=== PATIENT | female | born 1980 | race African-American/Black ===

== ENCOUNTER 2017-07-31 23:35 | Inpatient (IN) | payer BC ==
[~2017-07-31] VITALS: Ht 165.1 cm; Wt 66.4 kg
[2017-07-31 23:43] VITALS: BP 127/92; PULSE 88; RESP 18; TEMP 98; O2SAT 99
[2017-08-01] MEDS ORDERED: ACETAMINOPHEN/HYDROcodone 325 MG/7.5 MG TAB PO ONE
--- NOTE | 2017-08-01 00:01 | PD ---
HPI Chief Complaint: Injury Time Seen by Provider: 23:44 Travel History International Travel<30 days: No Contact w/Intl Traveler<30days: No Traveled to known affect area: No History of Present Illness HPI Patient is a 36-year-old female presenting to the emergency department for evaluation of left foot and ankle pain. Patient was at a football game, got excited that her team won subsequently jumping up and down rolling her ankle. She reports the pain is 10 out of 10, aching and throbbing in nature. No alleviating factors. Patient's ankle was wrapped by the sports statistician prior to arrival. She denies any numbness or weakness. She states is painful to move it and cannot bear weight. Symptom onset is sudden, symptoms are moderate in nature. No alleviating factors. Pain is constant. PFSH Past Medical History Anemia: Yes Asthma: Yes Diminished Hearing: No Immunizations Current: Yes Migraines: Yes ?: Not Past Surgical History Appendectomy: Yes Gynecologic Surgery: Yes (UTERINE) Social History Alcohol Use: Yes Tobacco Use: No Substance Use: No Allergies-Medications (Allergen,Severity, Reaction): Coded Allergies: aspirin (Verified Allergy, Severe, 07/31/17) Review of Systems Except as stated in HPI: all other systems reviewed are Neg Musculoskeletal: Positive: Myalgias, Arthralgias, Limited ROM, Pain, No: Edema Skin: No Change in Pigmentation Physical Exam Narrative GENERAL: Well-developed, well-nourished, alert -[place] female. Presenting in no acute distress, appears uncomfortable. SKIN: Warm and dry. HEAD: Atraumatic. Normocephalic. EYES: Pupils equal and round. No scleral icterus. No injection or drainage. ENT: No nasal bleeding or discharge. Mucous membranes pink and moist. NECK: Trachea midline. No JVD. CARDIOVASCULAR: Regular rate and rhythm. RESPIRATORY: No accessory muscle use. Clear to auscultation. Breath sounds equal bilaterally. GASTROINTESTINAL: Abdomen soft, non-tender, nondistended. Hepatic and splenic margins not palpable. MUSCULOSKELETAL: Extremities without clubbing, cyanosis, or edema. No obvious deformities. Limited range of motion with flexion and extension of left ankle. 2+ dorsalis pedal pulse, brisk less than 3 second capillary refill. Tenderness to palpation to lateral aspect of left ankle and the plantar aspect of the left foot. NEUROLOGICAL: Awake and alert. No obvious cranial nerve deficits. Motor grossly within normal limits. Five out of 5 muscle strength in the arms and legs. Normal speech. PSYCHIATRIC: Appropriate mood and affect; insight and judgment normal. Data Data Last Documented VS Vital Signs Date Time Temp Pulse Resp B/P (MAP) Pulse Ox O2 Delivery O2 Flow Rate FiO2 08/01/17 04:15 83 20 135/91 (106) 98 Room Air 07/31/17 23:43 98.0 Orders Orders Foot, Complete ([id number]) (07/31/17 ) Ankle, Complete ([id number]) (07/31/17 ) Ice/Cold Pack (07/31/17 23:52) Acetamin-Hydrocod 325-7.5 Mg ([place] 7.5 (08/01/17 00:00) Complete Blood Count With Diff (08/01/17 03:25) Comprehensive Metabolic Panel (08/01/17 03:25) Act Partial Throm Time (Ptt) (08/01/17 03:25) Prothrombin Time / Inr (Pt) (08/01/17 03:25) Iv Access Insert/Monitor (08/01/17 03:25) Ct Foot W/O Contrast (08/01/17 ) Acetaminophen 1000 Mg/100 Ml (Ofirmev 10 (08/01/17 03:45) Splinting (08/01/17 ) Admit To Inpatient (08/01/17 ) Vital Signs (Adult) Q4H (08/01/17 03:48) Activity Bed Rest (08/01/17 03:48) Diet Npo (08/01/17 Breakfast) Sodium Chlor 0.9% 1000 Ml Inj (Ns 1000 M (08/01/17 03:48) Sodium Chloride 0.9% Flush (Ns Flush) (08/01/17 04:00) Sodium Chloride 0.9% Flush (Ns Flush) (08/01/17 09:00) Metoclopramide Inj (Reglan Inj) (08/01/17 04:00) Comprehensive Metabolic Panel (08/02/17 06:00) Complete Blood Count With Diff (08/02/17 06:00) Pt Request For Service (08/01/17 03:48) Case Management Consult (08/01/17 03:48) Acetaminophen (Tylenol) (08/01/17 04:00) Acetamin-Hydrocod 325-5 Mg ([place] 5-325 (08/01/17 04:00) Docusate Sodium-Senna (Ofelia-Colace) (08/01/17 09:00) Magnesium Hydroxide Liq (Milk Of Magnesi (08/01/17 04:00) Sennosides (Senokot) (08/01/17 04:00) Bisacodyl Supp (Dulcolax Supp) (08/01/17 04:00) Lactulose Liq (Lactulose Liq) (08/01/17 04:00) Inpatient Certification (08/01/17 ) Consult Podiatry (08/01/17 ) Morphine Inj (Morphine Inj) (08/01/17 04:15) Admit Order (Ed Use Only) (08/01/17 04:28) Labs Laboratory Tests Test 08/01/17 03:40 Prothrombin Time 10.1 SEC Prothromb Time International Ratio 1.0 RATIO Activated Partial Thromboplast Time 23.3 SEC Blood Urea Nitrogen 13 MG/DL Creatinine 0.88 MG/DL Random Glucose 88 MG/DL Total Protein 7.9 GM/DL Albumin 3.2 GM/DL Calcium Level 8.1 MG/DL Alkaline Phosphatase 58 U/L Aspartate Amino Transf (AST/SGOT) 16 U/L Alanine Aminotransferase (ALT/SGPT) 17 U/L Total Bilirubin 0.1 MG/DL Sodium Level 144 MEQ/L Potassium Level 3.6 MEQ/L Chloride Level 109 MEQ/L Carbon Dioxide Level 24.7 MEQ/L Anion Gap 10 MEQ/L Estimat Glomerular Filtration Rate 87 ML/MIN [facility] Medical Decision Making Medical Screen Exam Complete: Yes Emergency Medical Condition: Yes Interpretation(s) Vital Signs Date Time Temp Pulse Resp B/P (MAP) Pulse Ox O2 Delivery O2 Flow Rate FiO2 07/31/17 23:43 98.0 88 18 127/92 (104) 99 Room Air Differential Diagnosis Fracture versus sprain versus strain versus other Narrative Course Patient is a 28-year-old female presenting to emerge department for evaluation of left ankle and foot pain after jumping up and down, rolling her ankle. Patient is neurovascularly intact. Imaging ordered and pending. Patient be given pain medication ice for pain relief. Will reassess. Initial x-ray shows slightly comminuted mildly displaced fracture of the calcaneus. CT scan of the foot is ordered and pending. Patient reported that initial dose of pain medication helped alleviate her pain. CT scan of the left foot shows a comminuted, mildly displaced fracture extending through the anterior, mid, posterior portion of the calcaneus and extending into the subtalar joint. Discussed findings with my attending physician, patient will be admitted to medicine with a consult to podiatry. Patient and spouse were advised on findings. Patient will be placed in a well-padded [place] splint. Discussed with Dr. Wilhelm who accepted admit. CMP with no acute findings, CBC is pending, discussed with lab, CBC machine is down due to problem with down time procedures. Diagnosis Primary Impression: Calcaneus fracture, left Qualified Codes: S92.012A - Displaced fracture of body of left calcaneus, initial encounter for closed fracture Admitting Information Admitting Physician Requests: Admit Condition: Stable Maria D Strickland August 01, 2017 00:01
--- NOTE | 2017-08-01 00:39 | RADRPT ---
EXAM DATE/TIME: 08/01/2017 00:02 [facility] COMPARISON: No previous studies available for comparison. INDICATIONS : Pain post fall. MEDICAL HISTORY : Asthma. Anemia. SURGICAL HISTORY : Uterine. Appendectomy. Right foot surgery. ENCOUNTER: Initial ACUITY: 1 day PAIN SCORE: 10/10 LOCATION: Left Ankle. FINDINGS: There is a mildly displaced calcaneal fracture extending into the subtalar joint. Fracture is slightl y comminuted. There is soft tissue swelling around hindfoot and ankle. Ankle mortise intact. CONCLUSION: 1. Slightly comminuted mildly displaced fracture of the calcaneus. Rickie Frances MD on August 01, 2017 at 0:36 Board Certified Radiologist. This report was verified electronically.
--- NOTE | 2017-08-01 02:32 | RADRPT ---
EXAM DATE/TIME: 08/01/2017 00:02 [facility] COMPARISON: No previous studies available for comparison. INDICATIONS : Pain post fall. MEDICAL HISTORY : Asthma. Anemia. SURGICAL HISTORY : Uterine. Appendectomy. Right foot surgery. ENCOUNTER: Initial ACUITY: 1 day PAIN SCORE: 10/10 LOCATION: Left Foot. FINDINGS: There is a slightly comminuted mildly displaced fracture of the calcaneus. No dislocation. There is s urrounding soft tissue swelling. No other fractures of the left foot identified. CONCLUSION: 1. Slightly comminuted mildly displaced fracture of the calcaneus extending into subtalar joint with surrounding soft tissue swelling. Rickie Frances MD on August 01, 2017 at 1:23 Board Certified Radiologist. This report was verified electronically.
[2017-08-01] MEDS ORDERED: ACETAMINOPHEN 1000 MG/100 ML 100 ML IV ONE (03:45)
[2017-08-01 03:47] VITALS: BP 142/90; PULSE 62; RESP 20; O2SAT 98
[2017-08-01] MEDS: SODIUM CHLOR 0.9% 1000 ML INJ 1,000 ML IV SCH ×2 (03:48→13:48)
[2017-08-01] MEDS ORDERED: SENNOSIDES 8.6 MG TAB PO PRN (04:00)
[2017-08-01] MEDS ORDERED: MAGNESIUM HYDROXIDE SUSP 30 ML CUP PO PRN (04:00)
[2017-08-01] MEDS ORDERED: SODIUM CHLORIDE 0.9% FLUSH 10 ML FLUSH IV FLUSH PRN (04:00)
[2017-08-01] MEDS ORDERED: ACETAMINOPHEN 325 MG TAB PO PRN (04:00)
[2017-08-01] MEDS ORDERED: LACTULOSE SYRUP 20 GM/30 ML CUP PO PRN (04:00)
[2017-08-01] MEDS ORDERED: METOCLOPRAMIDE HCL 10 MG/2 ML VIAL IV PUSH PRN (04:00)
[2017-08-01] MEDS ORDERED: BISACODYL 10 MG SUPP RECTAL PRN (04:00)
[2017-08-01] MEDS: MORPHINE SULFATE 4 MG/ML INJ IV PUSH PRN ×3 (04:14→16:06)
[2017-08-01 04:15] VITALS: BP 135/91; PULSE 83; RESP 20; O2SAT 98
--- NOTE | 2017-08-01 04:27 | HHI.HP ---
[facility] Primary Care Physician Unknown Admission Diagnosis Diagnoses: (1) Calcaneus fracture, left Diagnosis: Principal Travel History International Travel<30 Days: No Contact w/Intl Traveler <30 Da: No Traveled to Known Affected Are: No History of Present Illness This is a 36-year-old female with a PMH of Asthma who presented to the ER secondary to complaints of left ankle pain after injury. Patient states she is from [place] and was here watching a football game, states her team one at the last second and she got very excited and jumped up and down, ended up falling into a trench and rolled her left ankle. Pain is constant, severe, 10/ 10, nonradiating, worse with movement. No other injuries reported. On arrival , BP 127/92, HR 88, O2 sat 99% RA, Afebrile. Labs pending. Ankle X-ray with comminuted mildly displaced fracture of the calcaneus. Review of Systems Except as stated in HPI: all other systems reviewed are Neg ROS: 14 point review of systems otherwise negative. Past Family Social History Past Medical History PMH: Asthma Past Surgical History PAST SURGICAL HISTORY: Appendectomy, Uterine Surgery Allergies: Coded Allergies: aspirin (Verified Allergy, Severe, 07/31/17) Family History PAST FAMILY HISTORY: Reviewed. No h/o DM or CAD Social History PAST SOCIAL HISTORY: Occasional alcohol. Negative for tobacco or drugs. Physical Exam Vital Signs Vital Signs Date Time Temp Pulse Resp B/P (MAP) Pulse Ox O2 Delivery O2 Flow Rate FiO2 08/01/17 04:15 83 20 135/91 (106) 98 Room Air 08/01/17 03:47 62 20 142/90 (107) 98 Room Air 08/01/17 03:07 20 07/31/17 23:43 98.0 88 18 127/92 (104) 99 Room Air Physical Exam PE: GENERAL: Extremely pleasant young black female in no acute distress, however in obvious pain. HEENT: PERRLA, EOMI. No scleral icterus or conjunctival pallor. No lid lag or facial droop. CARDIOVASCULAR: Regular rate and rhythm. No obvious murmurs to auscultation. No chest tenderness to palpation. RESPIRATORY: No obvious rhonchi or wheezing. Clear to auscultation. Breath sounds equal bilaterally. GASTROINTESTINAL: Abdomen soft, non-tender, nondistended. BS normal. MUSCULOSKELETAL: Extremities without clubbing, cyanosis, or edema. No obvious deformities. Decreased ROM of LLE due to injury, pulses intact. NEUROLOGICAL: Awake, alert and oriented x4. No focal neurologic deficits. Moving both upper and lower extremities spontaneously. Laboratory Laboratory Tests Test 08/01/17 03:40 Caprini VTE Risk Assessment Caprini VTE Risk Assessment: No/Low Risk (score <= 1) Caprini Risk Assessment Model Point Value = 1 Point Value = 2 Point Value = 3 Point Value = 5 Age 41-60 Minor surgery BMI > 25 kg/m2 Swollen legs Varicose veins or History of unexplained or recurrent spontaneous Oral contraceptives or hormone replacement Sepsis (< 1 month) Serious lung disease, including pneumonia (< 1 month) Abnormal pulmonary function Acute myocardial infarction Congestive heart failure (< 1 month) History of inflammatory bowel disease Medical patient at bed rest Age 61-74 Arthroscopic surgery Major open surgery (> 45 min) Laparoscopic surgery (> 45 min) Malignancy Confined to bed (> 72 hours) Immobilizing plaster cast Central venous access Age >= 75 History of VTE Family history of VTE Factor V Leiden Prothrombin [id number] Lupus anticoagulant Anticardiolipin antibodies Elevated serum homocysteine Heparin-induced thrombocytopenia Other congenital or acquired thrombophilia Stroke (< 1 month) Elective arthroplasty Hip, pelvis, or leg fracture Acute spinal cord injury (< 1 month) Prophylaxis Regimen Total Risk Factor Score Risk Level Prophylaxis Regimen 0-1 Low Early ambulation 2 Moderate Order ONE of the following: *Sequential Compression Device (SCD) *Heparin 5000 units SQ BID 3-4 Higher Order ONE of the following medications: *Heparin 5000 units SQ TID *Enoxaparin/Lovenox 40 mg SQ daily (WT < 150 kg, CrCl > 30 mL/min) *Enoxaparin/Lovenox 30 mg SQ daily (WT < 150 kg, CrCl > 10-29 mL/min) *Enoxaparin/Lovenox 30 mg SQ BID (WT < 150 kg, CrCl > 30 mL/min) AND/OR *Sequential Compression Device (SCD) 5 or more Highest Order ONE of the following medications: *Heparin 5000 units SQ TID (Preferred with Epidurals) *Enoxaparin/Lovenox 40 mg SQ daily (WT < 150 kg, CrCl > 30 mL/min) *Enoxaparin/Lovenox 30 mg SQ daily (WT < 150 kg, CrCl > 10-29 mL/min) *Enoxaparin/Lovenox 30 mg SQ BID (WT < 150 kg, CrCl > 30 mL/min) AND *Sequential Compression Device (SCD) Assessment and Plan Problem List: (1) Calcaneus fracture, left ICD Code: S92.002A - Unspecified fracture of left calcaneus, initial encounter for closed fracture Assessment and Plan A/P: 1. Left Calcaneus Fx: s/p injury after jumping up and down and rolling her ankle, X-ray w/ comminuted mildly displaced fracture of calcaneus, images reviewed by me. Labs pending. To be splinted in ER. Consult Podiatry for surgical intervention in am. NPO, IVF, analgesics/antiemetics as needed. 2. DVT Prophylaxis: Anticoagulation post op 3. Social work for d/c planning as needed. 4. Case discussed w/ ER physician at length, labs/records/imaging reviewed by me. Physician Certification 2 Midnight Certification Type: Admission for Inpatient Services Order for Inpatient Services The services are ordered in accordance with Medicare regulations or non- Medicare payer requirements, as applicable. In the case of services not specified as inpatient-only, they are appropriately provided as inpatient services in accordance with the 2-midnight benchmark. Estimated LOS (days): 2 days is the estimated time the patient will need to remain in the hospital, assuming treatment plan goals are met and no additional complications. Post-Hospital Plan: Not yet determined Nelli Wilhelm MD August 01, 2017 04:27
[2017-08-01 04:33] LABS: ALBUMIN 3.2 GM/DL (3.4-5.0); ALT (GPT) 17 U/L (10-53); AST (GOT) 16 U/L (15-37); BICARBONATE 24.7 MEQ/L (21.0-32.0); BLOOD UREA NITROGEN 13 MG/DL (7-18); CALCIUM 8.1 MG/DL (8.5-10.1); CHLORIDE 109 MEQ/L (98-107); CREATININE 0.88 MG/DL (0.50-1.00); GLOMERULAR FILTRATION RATE 87 ML/MIN (>89); GLUCOSE,RANDOM 88 MG/DL (74-106); SODIUM (NA) 144 MEQ/L (136-145)
[2017-08-01 04:35] LABS: ALKALINE PHOSPHATASE 58 U/L (45-117); TOTAL BILIRUBIN ADULT 0.1 MG/DL (0.2-1.0); TOTAL PROTEIN 7.9 GM/DL (6.4-8.2)
[2017-08-01 04:39] LABS: PROTHROMBIN TIME - PATIENT 10.1 SEC (9.8-11.6)
[2017-08-01] MEDS: ACETAMINOPHEN/HYDROcodone 325 MG/5 MG TAB PO PRN ×2 (05:07→19:00)
[2017-08-01 05:42] VITALS: BP 131/87; PULSE 79; RESP 18; TEMP 97.9; O2SAT 97
[2017-08-01] MEDS ORDERED: ACETAMINOPHEN/HYDROcodone 325 MG/10 MG TAB PO ONE (05:45)
[2017-08-01] MEDS ORDERED: ZANTTAB PO (05:56)
[2017-08-01] MEDS ORDERED: SUMA50TA2 PO (05:56)
[2017-08-01] MEDS ORDERED: ZOFR4TAB PO (05:56)
[2017-08-01] MEDS ORDERED: ADVI200C3 PO (05:56)
[2017-08-01] MEDS ORDERED: CHLORHEXIDINE GLUCONATE 2 % 1 PACK (2 CLOTHS) TOPICAL PRN (06:15)
[2017-08-01] MEDS ORDERED: LACTATED RINGER'S 1000 ML IV PRN (06:15)
[2017-08-01] MEDS ORDERED: SODIUM CHLORID 0.9% 500 ML IV PRN (06:15)
[2017-08-01] MEDS ORDERED: POVIDONE IODINE 5% (ANTISEPSIS KIT) 4 APPLICATIONS EACH NARE PRN (06:15)
[2017-08-01 06:37] LABS: AUTOMATED NEUTROPHIL # 2.9 TH/MM3 (1.8-7.7); BASOPHIL % 0.6 % (0.0-2.0); EOSINOPHIL % 0.3 % (0.0-4.0); HEMATOCRIT 33.4 % (35.0-46.0); HEMOGLOBIN 11.1 GM/DL (11.6-15.3); LYMPH % 41.1 % (9.0-44.0); LYMPHOCYTE # 2.5 TH/MM3 (1.0-4.8); MEAN CELL VOLUME 87.9 FL (80.0-100.0); MEAN CORPUSCULAR HEMOGLOBIN 29.1 PG (27.0-34.0); MEAN CORPUSCULAR HGB CONC 33.1 % (32.0-36.0); MEAN PLATELET VOLUME 8.6 FL (7.0-11.0); MONO % 9.6 % (0.0-8.0); MONOCYTE # 0.6 TH/MM3 (0-0.9); NEUT % 48.4 % (16.0-70.0); PLATELET COUNT 262 TH/MM3 (150-450); RED CELL DISTRIBUTION WIDTH 14.3 % (11.6-17.2)
[2017-08-01 08:00] VITALS: BP 121/70; PULSE 81; RESP 16; TEMP 98.1; O2SAT 98
[2017-08-01] MEDS ORDERED: BUPIVACAINE LIPOSOME PF 1.3% 20 ML VIAL ONE (08:48)
[2017-08-01] MEDS ORDERED: HYDR-3288 PO (08:58)
[2017-08-01] MEDS ORDERED: CEPH-460 PO (08:59)
[2017-08-01] MEDS ORDERED: SODIUM CHLORIDE 0.9% FLUSH 10 ML FLUSH IV FLUSH SCH (09:00)
[2017-08-01] MEDS ORDERED: ENOX40P SQ (09:00)
[2017-08-01] MEDS ORDERED: DOCUSATE SODIUM 50 MG/SENNA 8.6 MG TAB PO SCH (09:00)
--- NOTE | 2017-08-01 09:02 | HHI.DCPOC ---
Discharge Care Plan Diagnosis: (1) Calcaneus fracture, left Goals to Promote Your Health * To prevent worsening of your condition and complications * To maintain your health at the optimal level Directions to Meet Your Goals Take your medications as prescribed Follow your dietary instruction Follow activity as directed Keep your appointments as scheduled Take your immunizations and boosters as scheduled If your symptoms worsen call your PCP, if no PCP go to Urgent Care Center or Emergency Room Smoking is Dangerous to Your Health. Avoid second hand smoke Call the 24-hour hour crisis hotline for domestic abuse at Elly Enriquez August 01, 2017 09:02
--- NOTE | 2017-08-01 09:03 | HHI.FF ---
Face to Face Verification Diagnosis: (1) Calcaneus fracture, left Physical Therapy Order: Evaluate and Treat Home Health Nursing Order: Medical education Signs/symptoms of disease process Medication education-adverse effect Nursing assessment with vital signs Instructions: Please assist patient with Lovenox injections. She will need Lovenox for 21 days I have seen patient Andria Velazco on 08/01/17. My clinical findings support the need for the requested home health care services because: Ltd mobility - disease progression Limited ability to care for self I certify that my clinical findings support that this patient is homebound because: Post-op weakness Unsteady gait/balance Elly Enriquez August 01, 2017 09:03
--- NOTE | 2017-08-01 09:15 | HHI.PR ---
Subjective Remarks Patient reports pain is much better with the pain medication Asking how soon she can go home after surgery Objective Vitals Vital Signs Date Time Temp Pulse Resp B/P (MAP) Pulse Ox O2 Delivery O2 Flow Rate FiO2 08/01/17 06:07 18 08/01/17 05:45 08/01/17 05:42 97.9 79 18 131/87 (102) 97 08/01/17 04:15 83 20 135/91 (106) 98 Room Air 08/01/17 03:47 62 20 142/90 (107) 98 Room Air 08/01/17 03:07 20 07/31/17 23:43 98.0 88 18 127/92 (104) 99 Room Air I/O 07/31/17 07/31/17 07/31/17 08/01/17 08/01/17 08/01/17 07:00 15:00 23:00 07:00 15:00 23:00 Intake Total 0 ml Balance 0 ml Intake Oral 0 ml # Voids 1 # Bowel Movements 0 Result Diagram: 08/01/17 0340 08/01/17 0340 Other Results Laboratory Tests Test 08/01/17 03:40 White Blood Count 6.0 TH/MM3 Red Blood Count 3.80 MIL/MM3 Hemoglobin 11.1 GM/DL Hematocrit 33.4 % Mean Corpuscular Volume 87.9 FL Mean Corpuscular Hemoglobin 29.1 PG Mean Corpuscular Hemoglobin Concent 33.1 % Red Cell Distribution Width 14.3 % Platelet Count 262 TH/MM3 Mean Platelet Volume 8.6 FL Neutrophils (%) (Auto) 48.4 % Lymphocytes (%) (Auto) 41.1 % Monocytes (%) (Auto) 9.6 % Eosinophils (%) (Auto) 0.3 % Basophils (%) (Auto) 0.6 % Neutrophils # (Auto) 2.9 TH/MM3 Lymphocytes # (Auto) 2.5 TH/MM3 Monocytes # (Auto) 0.6 TH/MM3 Eosinophils # (Auto) 0.0 TH/MM3 Basophils # (Auto) 0.0 TH/MM3 CBC Comment DIFF FINAL Differential Comment Prothrombin Time 10.1 SEC Prothromb Time International Ratio 1.0 RATIO Activated Partial Thromboplast Time 23.3 SEC Blood Urea Nitrogen 13 MG/DL Creatinine 0.88 MG/DL Random Glucose 88 MG/DL Total Protein 7.9 GM/DL Albumin 3.2 GM/DL Calcium Level 8.1 MG/DL Alkaline Phosphatase 58 U/L Aspartate Amino Transf (AST/SGOT) 16 U/L Alanine Aminotransferase (ALT/SGPT) 17 U/L Total Bilirubin 0.1 MG/DL Sodium Level 144 MEQ/L Potassium Level 3.6 MEQ/L Chloride Level 109 MEQ/L Carbon Dioxide Level 24.7 MEQ/L Anion Gap 10 MEQ/L Estimat Glomerular Filtration Rate 87 ML/MIN Imaging Last Impressions Foot X-Ray 07/31/17 0000 Signed Impressions: Service Date/Time: Tuesday, August 01, 2017 00:02 - CONCLUSION: 1. Slightly comminuted mildly displaced fracture of the calcaneus extending into subtalar joint with surrounding soft tissue swelling. Rickie Frances MD Ankle X-Ray 07/31/17 0000 Signed Impressions: Service Date/Time: Tuesday, August 01, 2017 00:02 - CONCLUSION: 1. Slightly comminuted mildly displaced fracture of the calcaneus. Rickie Frances MD Objective Remarks GENERAL: This is a well-nourished, well-developed patient, in no apparent distress. CARDIOVASCULAR: Regular rate and rhythm RESPIRATORY: Clear to auscultation. Breath sounds equal bilaterally. GASTROINTESTINAL: Abdomen soft, non-tender, nondistended. Normal active bowel sounds MUSCULOSKELETAL: splint LLE NEURO: Alert & Oriented x4 to person, place, time, situation. Moves all ext x4 A/P Problem List: (1) Calcaneus fracture, left ICD Code: S92.002A - Unspecified fracture of left calcaneus, initial encounter for closed fracture Assessment and Plan 1. Left Calcaneus Fx: s/p injury after jumping up and down and rolling her ankle, X-ray w/ comminuted mildly displaced fracture of calcaneus. Consult Podiatry. Discussed the case with Dr. Marks. Plan for surgery this AM if pain well controlled plan to DC patient later today. Continue analgesics/ antiemetics as needed. 2. DVT Prophylaxis: Lovenox SQ x 21 days per podiatry recommendations 3. Discussed with manager rn case plan to DC later today with [facility] to assist with Lovenox injections Supervising physician Dr. Melchor Problem Qualifiers (1) Calcaneus fracture, left: Qualified Codes: S92.012A - Displaced fracture of body of left calcaneus, initial encounter for closed fracture Elly Enriquez August 01, 2017 09:15
[2017-08-01] MEDS ORDERED: ceFAZolin 2 GM PREMIX 50 ML ONE (09:27)
--- NOTE | 2017-08-01 09:43 | MB ---
cc: Ezequiel Marks DPM DATE: 08/01/2017 REASON FOR CONSULTATION: Left calcaneal fracture. HISTORY OF PRESENT ILLNESS: This is a pleasant 36-year-old female who sustained an injury last night upon jumping. She fell into a trench and then rolled her ankle. She is having severe pain upon arrival to the ED. The ankle and foot x-rays revealed a calcaneal fracture that appeared to be intra-articular. A CT examination revealed a displaced posterior facet calcaneal fracture. Currently I am seeing the patient bedside. Pain has somewhat improved. PAST MEDICAL HISTORY: Asthma. PAST SURGICAL HISTORY: Appendectomy, uterine surgery, right foot neuroma surgery. ALLERGIES: ASPIRIN. FAMILY HISTORY: No history of diabetes or CAD. SOCIAL HISTORY: Occasional alcohol, negative for tobacco. The patient works for [employer]. OUTPATIENT MEDICATIONS: None listed. INPATIENT MEDICATIONS: P.r.n. medication. PHYSICAL EXAMINATION: VITAL SIGNS: 66 kilogram female. Temperature 97.9, pulse rate 79, respiratory rate 18, blood pressure 131/87. GENERAL: This is an alert and oriented female seen at bedside exhibiting nonlabored respirations. She is verbal, appropriate. She is moving all the upper and lower extremities. Left lower extremity is immobilized within a well-padded below-knee splint. There is good capillary refill time to digits. The ankle appears to be nontender. There is pain upon [id number] compression of the calcaneus. There is no strikethrough of the bandage. LABORATORY FINDINGS: White blood cell 6, hemoglobin and hematocrit, 11 and 33, platelet count is 262. Chem-7: Sodium 144, potassium 3.6, chloride 109, CO2 24.7, BUN 13, creatinine 0.88, random glucose 88, AST 16, ALT 17. Albumin 3.2. Coagulation profile: PT 10.1, INR 1.0. IMAGING FINDINGS: Ankle x-ray: Well preserved ankle mortise without any signs of syndesmotic widening, osteochondral lesion. Lateral view of the foot and ankle reveals intra-articular fracture. CT examination: There is noted to be a displaced anterolateral aspect of the subtalar joint, greater than 5 mm. There is mild comminution noted. There is not a significant joint depression; however, there appears to be a lateral wall blowout of the calcaneus and there is slight varus rotation alignment of the most distal aspect of the calcaneus about the sustentacular fragment. ASSESSMENT AND PLAN: Left intra-articular displaced calcaneal fracture. The patient was educated on the severity of the injury. The goal is to reduce the fracture fragments to decrease the chance of posttraumatic arthritis. The patient understood screws and possible plate will be placed within the foot, possibly need to be removed at a later date. Risks and benefits reviewed including, but not limited to delayed healing, nonhealing, infection, possible need for subtalar joint fusion at a later date. The patient also reviewed the need to be immobilized, likely DVT prophylaxis is indicated for a minimum 21 days. I reviewed the case with the admitting team. We will attempt a popliteal block to assist with pain management anticipating a possible discharge after surgery if pain is well controlled and she can followup outpatient as she has a podiatric surgeon in [place]. Questions were answered. The patient is n.p.o. Surgery will take place in the next 1-2 hours. MARY Monsivais/HANY , 08:55 AM , 09:42 AM JORY
[2017-08-01] MEDS ORDERED: CEFAZOLIN INJ 2,000 MG in SODIUM CHLORIDE 0.9% INJ 100 ML IV ONE (11:00)
[2017-08-01] MEDS ORDERED: MIDAZOLAM HCL 2 MG/2 ML VIAL ONE (11:49)
--- NOTE | 2017-08-01 11:50 | HHI.PR ---
Immediate Post Op Note Procedure Date: August 01, 2017 Pre Op Diagnosis: left calcaneal fracture Post Op Diagnosis: same Surgeon: Ezequiel Cueva Weight Reducing Technician(s): scrub Procedure: ORIF left calcaneus Findings: see anethesia Additional Information: Ok to DC home once stable on floor and pain controlled, patient popliteal block with Exparel Complications: none Specimen(s) removed: none Estimated blood loss: less 30 mL Anesthesia: General, Regional Block Drains: None IVF Tourniquet time (min at mmHg) 65 min 250mmhg Patient to: PACU Patient Condition: Good Implant/Devices: SEE IMPLANT LOG (if applicable) Date/Time of Procedure: SEE SURGICAL CARE RECORD Ezequiel Cueva DPM August 01, 2017 11:50
--- NOTE | 2017-08-01 12:11 | RADRPT ---
EXAM DATE/TIME: 08/01/2017 11:08 [facility] COMPARISON: No previous studies available for comparison. INDICATIONS : Surgical repair MEDICAL HISTORY : None. SURGICAL HISTORY : None. ENCOUNTER: Initial ACUITY: 1 day PAIN SCORE: Non-responsive. LOCATION: Left calcaneous. FINDINGS: 2 images were recorded digitally in the operating room using C-arm during placement of internal fixat ion hardware in the calcaneus. CONCLUSION: Intraoperative images. Best Borrego MD on August 01, 2017 at 12:09 Board Certified Radiologist. This report was verified electronically.
[2017-08-01] MEDS ORDERED: DO NOT ADM ANY ANTICOAGULANT DRUGS PRN (12:15)
[2017-08-01 12:39] VITALS: BP 128/79; PULSE 90; RESP 16; TEMP 98.1; O2SAT 97
--- NOTE | 2017-08-01 12:54 | MP ---
cc: Ezequiel Marks DPM DATE OF OPERATION: PREOPERATIVE DIAGNOSIS: Left intraarticular displaced calcaneal fracture. POSTOPERATIVE DIAGNOSIS: Left intraarticular displaced calcaneal fracture. PROCEDURE PERFORMED: Open reduction, internal fixation of left calcaneus. ANESTHESIA: General. The patient received a popliteal and a lesser saphenous block utilizing Exparel. ESTIMATED BLOOD LOSS: Less than 30 mL TOURNIQUET: 65 minutes at a setting of 250 mmHg about the patient's left mid thigh. MATERIALS USED: Synthes x 2 4.0 cannulated stainless steel screws, x 1 fully threaded 4.5 cannulated stainless steel screw and x 1 6.5 stainless steel partially threaded screw. SPECIMEN: None. COMPLICATION: None. PLAN OF ACTIVITY: Return to floor. If pain well controlled, okay to discharge later on today on Keflex, to receive at least 5 doses, as well as Lovenox to start approximately 12 hours after surgery. The patient will be nonweightbearing. JUSTIFICATION FOR PROCEDURE: This is a pleasant 36-year-old female who sustained a trip fall. She presented to the ED. Intraarticular calcaneal fracture was noted. CT showed there was greater than 5 mm of gapping of the lateral aspect of the subtalar joint with lateral wall blowout. We devised a plan to move forward with surgical intervention. Risks and benefits explained in great detail and no guarantees given or implied regarding the outcome. PROCEDURE IN DETAIL: Under mild sedation, the patient was brought in the operating room, placed on the operating table in the supine position. The anesthesia department performed a popliteal block and saphenous block. The patient's left foot was then scrubbed, prepped and draped in the usual aseptic fashion. The left foot was elevated and exsanguinated and the previously placed mid thigh tourniquet was inflated at 250 mmHg. An incision was made over the lateral aspect of the sinus tarsi. Curvilinear incision being careful not to violate the lateral dorsal cutaneous nerve as well as the sural nerve or peroneal tendons. Sharp and blunt dissection was carried down to the subtalar joint in which the fracture fragment was noted to be significantly displaced involving the lateral aspect of the subtalar joint. Next, a Schanz pin was then placed transaxial through the calcaneus from the lateral aspect of the distal calcaneus exiting medially. Distraction then took place to pull the foot out of a varus alignment into a more rectus alignment. Utilizing a [place] elevator, the fracture fragment of the posterior facet was then reduced anatomically and a wire was then placed from the lateral aspect of the wall of the calcaneus into the sustentaculum fragment. A second wire was then placed in parallel fashion. Lateral aspect was visualized and there was no step-off noted of the subtalar joint. It was noted to be near anatomical. Calcaneal axial and lateral fluoroscopic views confirmed the alignment of the guidewire and the subtalar joint. Utilizing proper AO technique, two 4-0 screws were then placed, securing the posterior facet. Next a [place]ong elevator was used to distract the lateral wall fragment, the body fragments under live fluoroscopy, calcaneal axial while putting traction through the transcalcaneal pin. Next, a guidewire for a 6.5 screw was then placed through the plantar aspect of the calcaneus, but stopped just short of the posterior facet to provide a kickstand type effect and line up the posterior tuber of the calcaneus plantarly with the mid body and sustentaculum fragment. Next, a wire was then placed through the posterior plantar aspect of the calcaneus that was slightly more lateral, securing the posterior facet and the lateral wall of the calcaneus. Utilizing proper AO technique, 2 screws were then placed, one a 6.5 and then the other being a 4.5 fully threaded screw. The calcaneus was then brought through range of motion. The transaxial pin was then removed. There was noted to be no shifting of fracture fragments. Minimal medial wall step-off was noted. However, significant improvement in varus alignment now more rectus. The wound was then flushed with copious amounts of normal saline. All percutaneous incisions were then closed utilizing nylon. Deep joint capsule of the sinus tarsi was closed utilizing Vicryl. Skin was closed utilizing nylon. Upon relieving the tourniquet, there was a prompt hyperemic response to all digits without any delayed capillary fill time. A bulky bandage was placed and a posterior splint applied. The patient recovered nicely in the post-anesthesia care unit. The patient is permitted to be discharged later today if pain is well controlled. Prescriptions in chart, Keflex, Lovenox and [place]. The patient is nonweightbearing. She will follow up with a foot and ankle surgeon in her area in [place]. MARY Monsivais/HANY , 11:50 AM , 12:52 PM
[2017-08-01 16:00] VITALS: BP 137/82; PULSE 77; RESP 16; TEMP 98.2; O2SAT 98
--- NOTE | 2017-08-01 16:03 | RADRPT ---
EXAM DATE/TIME: 08/01/2017 02:17 [facility] COMPARISON: No previous studies available for comparison. INDICATIONS : Trauma; calcaneous fracture. RADIATION DOSE: 7.29 CTDIvol (mGy) MEDICAL HISTORY : None SURGICAL HISTORY : None. ENCOUNTER: Initial ACUITY: 1 day PAIN SCALE: 8/10 LOCATION: Left foot TECHNIQUE: Volumetric scanning and 3D reconstructions of the foot were performed. Using automated exposure cont rol and adjustment of the mA and/or kV according to patient size, radiation dose was kept as low as r easonably achievable to obtain optimal diagnostic quality images. DICOM format image data is availab le electronically for review and comparison. FINDINGS: There is a comminuted mildly displaced fracture of the calcaneus extending into the subtalar joint. N o other fractures of the left foot are identified. No dislocation. Ankle mortise intact. CONCLUSION: 1. Comminuted, mildly displaced fracture extending through the anterior, mid and posterior portion of the calcaneus and extending into the subtalar joint. Rickie Frances MD on August 01, 2017 at 2:34 Board Certified Radiologist. This report was verified electronically.
[2017-08-01] MEDS ORDERED: CRUT48MI (16:19)
--- NOTE | 2017-08-01 16:25 | HHI.DS ---
Discharge Summary Admission Date August 01, 2017 at 04:30 Discharge Date: August 01, 2017 Admitting Diagnosis (1) Calcaneus fracture, left ICD Code: S92.002A - Unspecified fracture of left calcaneus, initial encounter for closed fracture Procedures Open reduction, internal fixation of left calcaneus 08/01/[address] Marks Brief History - From Admission This is a 36-year-old female with a PMH of Asthma who presented to the ER secondary to complaints of left ankle pain after injury. Patient states she is from [place] and was here watching a football game, states her team one at the last second and she got very excited and jumped up and down, ended up falling into a trench and rolled her left ankle. Pain is constant, severe, 10/ 10, nonradiating, worse with movement. No other injuries reported. On arrival , BP 127/92, HR 88, O2 sat 99% RA, Afebrile. Labs pending. Ankle X-ray with comminuted mildly displaced fracture of the calcaneus. CBC/BMP: 08/01/17 0340 08/01/17 0340 Significant Findings Laboratory Tests Test 08/01/17 03:40 Red Blood Count 3.80 MIL/MM3 (4.00-5.30) Hemoglobin 11.1 GM/DL (11.6-15.3) Hematocrit 33.4 % (35.0-46.0) Monocytes (%) (Auto) 9.6 % (0.0-8.0) Activated Partial Thromboplast Time 23.3 SEC (24.3-30.1) Albumin 3.2 GM/DL (3.4-5.0) Calcium Level 8.1 MG/DL (8.5-10.1) Total Bilirubin 0.1 MG/DL (0.2-1.0) Chloride Level 109 MEQ/L (98-107) Estimat Glomerular Filtration Rate 87 ML/MIN (>89) Imaging Last Impressions Lower Extremity CT 08/01/17 0000 Signed Impressions: Service Date/Time: Tuesday, August 01, 2017 02:17 - CONCLUSION: 1. Comminuted, mildly displaced fracture extending through the anterior, mid and posterior portion of the calcaneus and extending into the subtalar joint. Rickie Frances MD Foot X-Ray 08/01/17 0000 Signed Impressions: Service Date/Time: Tuesday, August 01, 2017 11:08 - CONCLUSION: Intraoperative images. Best Borrego MD Ankle X-Ray 07/31/17 0000 Signed Impressions: Service Date/Time: Tuesday, August 01, 2017 00:02 - CONCLUSION: 1. Slightly comminuted mildly displaced fracture of the calcaneus. Rickie Frances MD PE at Discharge GENERAL: This is a well-nourished, well-developed patient, in no apparent distress. CARDIOVASCULAR: Regular rate and rhythm RESPIRATORY: Clear to auscultation. Breath sounds equal bilaterally. GASTROINTESTINAL: Abdomen soft, non-tender, nondistended. Normal active bowel sounds MUSCULOSKELETAL: splint LLE NEURO: Alert & Oriented x4 to person, place, time, situation. Moves all ext x4 Hospital Course Left Calcaneus Fx: injury after jumping up and down and rolling her ankle, X-ray w/ comminuted mildly displaced fracture of calcaneus. Consult Podiatry. Discussed the case with Dr. Marks. S/P Open reduction, internal fixation of left calcaneus. Podiatry cleared patient for DC Continue analgesics/antiemetics as needed. Patient reports she is established with a postpartum nurse in [place], [place], she will follow up with them DVT Prophylaxis: Lovenox SQ x 21 days per podiatry recommendations Discussed with child welfare caseworker plan to DC once [facility] to assist with Lovenox injections arranged per case management they will not be able to arrange home healthcare until tomorrow patient reports she is able to do her own Lovenox injections and that she has crutches at home already patient asking to be DC today and now refusing [facility] Supervising physician Dr. Melchor Pt Condition on Discharge: Stable Discharge Disposition: Discharge Home Discharge Time: <= 30 minutes Discharge Instructions DIET: Follow Instructions for: As Tolerated, No Restrictions Activities you can perform: See Additionl Instruction Other Activity Instructions: Activity per surgery- non weightbearing left lower extremity Follow up Referrals: PCP Follow-up - 1 Week Podiatry - 1 Week with Podiatry [facility] New Medications: Cephalexin (Keflex) 500 Mg Cap 500 MG PO Q8H for Infection for 3 Days, #9 CAP 0 Refills Enoxaparin Inj (Lovenox Inj) 40 Mg/0.4 Ml Syr 40 MG SQ DAILY for Blood Clot Prevention for 21 Days, SYRINGE 0 Refills Hydrocodone-Acetaminophen (Carey) 7.5-325 mg Tab 1 TAB PO Q4H PRN for PAIN for 7 Days, #42 TAB 0 Refills Misc. Devices (Crutch/Wood/Adult/48"-60") 1 Mis Mis PACK, #1 Continued Medications: Ondansetron (Zofran) 4 Mg Tab 4 MG PO Q8HR PRN for NAUSEA OR VOMITING, TAB 0 Refills Ranitidine (Zantac 150 Maximum Strength) 150 Mg Tab 300 MG PO BID, TAB Sumatriptan (Sumatriptan) 50 Mg Tab 50 MG PO Q2HR PRN for headache, TAB 0 Refills If a satisfactory response has not been obtained at 2 hours, a second dose may be administered Discontinued Medications: Ibuprofen (Advil Migraine) 200 Mg Cap 2 TAB PO Elly Enriquez August 01, 2017 16:25
[2017-08-01] MEDS ORDERED: ROCURONIUM INJ 50 MG/5 ML SYRINGE IV PUSH ONE (20:12)
[2017-08-01] MEDS ORDERED: LACTATED RINGER'S 1000 ML INJ 1,000 ML IV ONE (20:12)
[2017-08-01] MEDS ORDERED: LIDOCAINE HCL 1% PF 5 ML SYRINGE OTHER ONE (20:12)
[2017-08-01] MEDS ORDERED: DEXAMETHASONE SOD PHOS 4 MG/ML VIAL IV ONE (20:12)
[2017-08-01] MEDS ORDERED: PROPOFOL 200 MG/20 ML AMP IV ONE (20:12)
[2017-08-01] MEDS ORDERED: ONDANSETRON HCL 4 MG/2 ML VIAL IV PUSH ONE (20:12)
[2017-08-01] MEDS ORDERED: SUCCINYLCHOLINE CHLORIDE 200 MG/10 ML VIAL IV ONE (20:12)
== END 2017-08-01 20:13 | disposition home or self-care (01) | DRG 505 ==
LOC: NEPD 23:35 → NEDA 08-01 04:30 → N06B 08-01 05:34
PROVIDERS: ADMIT Hospitalist; ATTEND Hospitalist
PROC: 0QSM04Z Reposition Left Tarsal with Internal Fixation Device, Open Approach (ICD-10-PCS; principal; 2017-08-01 09:34)
DX: S92.062A Displaced intraarticular fracture of left calcaneus, initial encounter for closed fracture (principal)
CPT/HCPCS: 73610; 73630; 73650; 73700; 76000; 80053; 85025; 85610; 85730; 99285; C1713; C1769; C9290; E0113; J0330; J0690; J1100; J2250; J2270; J2405; J2765; J3010; J7030; J7120